=== PATIENT | female | born 1980 | race Caucasian/White ===

== ENCOUNTER 2022-12-10 08:35 | Emergency (ER) | payer OTHER ==
[~2022-12-10] VITALS: Ht 165.1 cm; Wt 60.0 kg
== END 2022-12-10 09:00 | disposition home or self-care (01) ==
LOC: ED 08:35
DX: T19.2XXA Foreign body in vulva and vagina, initial encounter (principal); X58.XXXA Exposure to other specified factors, initial encounter
CPT/HCPCS: 99283